=== PATIENT | male | born 1955 | race African-American/Black ===

== ENCOUNTER 2019-02-22 22:56 | Emergency (ER) | payer MEDICAID ==
[~2019-02-22] VITALS: Ht 182.9 cm; Wt 123.0 kg
[~2019-02-22 22:56] MED LIST: AMLO10TA4; METF500T; SIMV20TA6; TRAM50TA3
[2019-02-23] MEDS ORDERED: ACETAMINOPHEN 500MG TABLET PO ONE (00:45)
[2019-02-23 01:52] VITALS: BP 165/85
== END 2019-02-23 02:00 | disposition home or self-care (01) ==
LOC: ER 22:56
DX: M25.562 Pain in left knee (principal); E11.9 Type 2 diabetes mellitus without complications; I10 Essential (primary) hypertension; F31.9 Bipolar disorder, unspecified; Z90.49 Acquired absence of other specified parts of digestive tract; Z98.890 Other specified postprocedural states; Z87.891 Personal history of nicotine dependence; W13.8XXA Fall from, out of or through other building or structure, initial encounter; Y93.A1 Activity, exercise machines primarily for cardiorespiratory conditioning; Y92.89 Other specified places as the place of occurrence of the external cause; Y99.8 Other external cause status
CPT/HCPCS: 73562; 99283

== ENCOUNTER 2019-06-23 18:52 | Emergency (ER) | payer MEDICAID ==
[~2019-06-23] VITALS: Ht 182.9 cm; Wt 113.0 kg
[2019-06-23] MEDS ORDERED: IBUPROFEN 600MG TABLET PO ONE (19:30)
[2019-06-23 20:30] VITALS: BP 157/82
== END 2019-06-23 20:30 | disposition home or self-care (01) ==
LOC: ER 18:52
DX: J02.9 Acute pharyngitis, unspecified (principal); J06.9 Acute upper respiratory infection, unspecified; E11.9 Type 2 diabetes mellitus without complications; I10 Essential (primary) hypertension; F31.9 Bipolar disorder, unspecified; Z85.9 Personal history of malignant neoplasm, unspecified; Z90.49 Acquired absence of other specified parts of digestive tract; Z79.84 Long term (current) use of oral hypoglycemic drugs
CPT/HCPCS: 87070; 87430; 99283

== ENCOUNTER 2022-04-08 21:37 | Emergency (ER) | payer MEDICARE, OTHER ==
[~2022-04-08] VITALS: Ht 182.9 cm; Wt 121.0 kg
[~2022-04-08 21:37] MED LIST changes: +SIMV-43; -SIMV20TA6
[2022-04-08 22:08] VITALS: BP 153/73
[2022-04-08] MEDS ORDERED: KETOROLAC 60MG/2ML VIAL IM ONE (22:15)
[2022-04-09] MEDS ORDERED: ACETAMINOPHEN 325MG TABLET PO ONE (01:30)
[2022-04-09] MEDS ORDERED: KETOROLAC 60MG/2ML VIAL IM NR (01:30)
[2022-04-09] MEDS ORDERED: LIDOCAINE 5% PATCH TOP SCH (01:30)
[2022-04-09] MEDS ORDERED: TOPUD PO (02:21)
[2022-04-09] MEDS ORDERED: IBUP-2028 MT (02:21)
[2022-04-09] MEDS ORDERED: LIDO1ADH23 TP (02:21)
[2022-04-09] MEDS ORDERED: METH-653 MT (02:21)
== END 2022-04-09 03:43 | disposition home or self-care (01) ==
LOC: ER 21:37
DX: S33.5XXA Sprain of ligaments of lumbar spine, initial encounter (principal); W18.39XA Other fall on same level, initial encounter; Y93.89 Activity, other specified; Y92.89 Other specified places as the place of occurrence of the external cause; Y99.8 Other external cause status; E11.9 Type 2 diabetes mellitus without complications; I10 Essential (primary) hypertension; Z90.49 Acquired absence of other specified parts of digestive tract; Z85.9 Personal history of malignant neoplasm, unspecified
CPT/HCPCS: 72100; 96372; 99283; J1885

== ENCOUNTER 2022-06-25 08:18 | Emergency (ER) | payer MEDICARE, OTHER ==
[~2022-06-25] VITALS: Ht 182.9 cm; Wt 120.0 kg
[~2022-06-25 08:18] MED LIST changes: +IBUP-2028 MT; +LIDO1ADH23 TP; +METH-653 MT; +TOPUD PO
[2022-06-25] MEDS ORDERED: ONDANSETRON HCL 4MG/2ML INJ IV STA (09:07)
[2022-06-25] MEDS ORDERED: KETOROLAC 30MG/ML VIAL IV STA (09:07)
[2022-06-25] MEDS ORDERED: IBUPROFEN 400MG TABLET PO ONE (09:15)
[2022-06-25] MEDS ORDERED: KETOROLAC 60MG/2ML VIAL IM ONE (09:15)
[2022-06-25] MEDS ORDERED: SODIUM CHLORIDE 0.9% 1,000 ML IV ONE (09:15)
[2022-06-25 09:57] LABS: BASOPHILS % 1.2 % (0.0-2.0); EOSINOPHILS % 1.5 % (0.0-5.0); HEMATOCRIT. 39.4 % (42.0-52.0); HEMOGLOBIN. 13.3 g/dL (14.0-18.0); LYMPHOCYTES % 31.7 % (20.0-50.0); MEAN CORPUSCULAR HEMOGLOBIN 28.4 pg (28.0-32.0); MEAN CORPUSCULAR VOLUME 84.3 fL (80.0-94.0); MEAN PLATELET VOLUME 9.2 fl (7.4-10.4); MONOCYTES % 9.1 % (2.0-8.0); NEUTROPHILS % 56.5 % (40.0-76.0); PLATELET 235 x1000/uL (130-400); RED BLOOD CELL COUNT 4.67 mill/uL (4.7-6.1); RED CELL DISTRIBUTION WIDTH 13.9 % (11.6-14.6)
[2022-06-25] MEDS ORDERED: MORPHINE SULFATE 4 MG/ML CPJ (NOT FOR IM USE) IV ONE (10:00)
[2022-06-25 10:12] LABS: CHLORIDE 100 mEq/L (98-107)
[2022-06-25 10:21] VITALS: BP 167/103
[2022-06-25 10:30] LABS: CLARITY URINE TURBID (CLEAR); COLOR URINE BLOODY (YELLOW)
[2022-06-25 10:31] LABS: KETONES URINE NEGATIVE (NEGATIVE); NITRITE URINE NEGATIVE (NEGATIVE); OCCULT BLOOD URINE 4+ (NEGATIVE); PH URINE 6.5 (4.5-8.0); PROTEIN URINE 3+ (NEGATIVE); SPECIFIC GRAVITY URINE 1.033 (1.005-1.030)
[2022-06-25 10:32] LABS: LEUKOCYTE ESTERASE URINE NEGATIVE (NEGATIVE); UROBILINOGEN URINE 0.2 E.U./dL (0.2-1.0)
[2022-06-25] MEDS ORDERED: IBUP-2028 MT (13:59)
== END 2022-06-25 14:22 | disposition home or self-care (01) ==
LOC: ER 08:18
DX: R31.9 Hematuria, unspecified (principal); I10 Essential (primary) hypertension; E11.9 Type 2 diabetes mellitus without complications; Z79.899 Other long term (current) drug therapy; Z98.890 Other specified postprocedural states; Z90.49 Acquired absence of other specified parts of digestive tract; Z85.46 Personal history of malignant neoplasm of prostate
CPT/HCPCS: 36415; 74176; 80053; 81003; 83690; 85025; 87086; 96361; 96374; 96375; 99284; J1885; J2270; J2405; J7030

== ENCOUNTER 2023-01-03 11:06 | Emergency (ER) | payer MEDICARE, MEDICAID ==
[~2023-01-03] VITALS: Ht 177.8 cm; Wt 95.0 kg
[2023-01-03 11:10] VITALS: O2SAT 95
[2023-01-03] MEDS ORDERED: SODIUM CHLORIDE 0.9% 1,000 ML IV ONE (11:30)
[2023-01-03 11:48] LABS: BASOPHILS % 1.2 % (0.0-2.0); EOSINOPHILS % 1.4 % (0.0-5.0); HEMATOCRIT. 36.4 % (42.0-52.0); HEMOGLOBIN. 12.1 g/dL (14.0-18.0); LYMPHOCYTES % 27.9 % (20.0-50.0); MEAN CORPUSCULAR HEMOGLOBIN 28.2 pg (28.0-32.0); MEAN CORPUSCULAR VOLUME 84.6 fL (80.0-94.0); MONOCYTES % 10.3 % (2.0-8.0); NEUTROPHILS % 59.2 % (40.0-76.0); PLATELET 216 x1000/uL (130-400); RED CELL DISTRIBUTION WIDTH 13.9 % (11.6-14.6)
[2023-01-03 12:03] LABS: CHLORIDE 105 mEq/L (98-107)
[2023-01-03 13:58] VITALS: BP 146/74; PULSE 74; RESP 16; TEMP 97.5
== END 2023-01-03 13:59 | disposition home or self-care (01) ==
LOC: ER 11:06
DX: R53.1 Weakness (principal); E11.9 Type 2 diabetes mellitus without complications; I10 Essential (primary) hypertension; E78.00 Pure hypercholesterolemia, unspecified; Z98.890 Other specified postprocedural states; Z90.49 Acquired absence of other specified parts of digestive tract
CPT/HCPCS: 36415; 71045; 80053; 85025; 86850; 86900; 86901; 96360; 96361; 99284; J7030